=== PATIENT | female | born 1980 | race Caucasian/White ===

== ENCOUNTER → 2019-05-11 | Outpatient (CLI) | payer BC ==
[~2019-05-11] MED LIST: BCP; CEPHALEXIN500 M1 PO; LEXAPRO 10MG10 MG PO; PRENATAL1 TA1 PO; XOPENEX HF0.045 MG/A IH; ZITHROMAX Z PA250 MG PO
== END ==
LOC: MC.RAD 05-05 15:30
DX: Z12.31 Encounter for screening mammogram for malignant neoplasm of breast (principal)

== ENCOUNTER → 2020-12-02 | Outpatient (CLI) | payer BC ==
[~2020-12-02] MED LIST changes: +IBU800 M1 PO
== END ==
LOC: MC.RAD 09:45
DX: Z12.31 Encounter for screening mammogram for malignant neoplasm of breast (principal)